=== PATIENT | male | born 1950 | race Caucasian/White ===

== ENCOUNTER 2020-10-05 10:53 | Outpatient (RCR) | payer MEDICARE, SELFPAY ==
--- NOTE | 2020-10-05 12:01 | PTOPEVAL ---
Thank you for referring Yousif Najera to [facility] The patient is scheduled to be seen for therapy? ____x/week for ___ weeks. Please review, sign, date and return this plan of care RAVINDER. I agree with and certify that the following plan of care is medically necessary. Referring Physician Date Admitting Provider: Attending Provider: ADAN BURRELL Referring Provider: JANETH Outpatient Evaluation Start: 10/05/20 10:58 Freq: Status: Active Protocol: Document 10/05/20 10:58 ACR (Rec: 10/05/20 12:00 ACR [id number]) Therapy Assessment Status Assessment Status Assessment Status Evaluation Evaluation Information Problem Diagnosis L1 spine fracture Onset 08/25/20 Subjective Information Patient states he fell against Query Text:As Reported By Patient/ the wall and slid straight Family down which fractured his L1 vertebrae. Patient states he has had about a dozen falls since the beginning of the year. He states he went to a specialist for his back and they gave him a back brace and told him to be careful. He is wearing the brace about 2-3 hours a day because he is suppose to be weaning off of the brace. Patient states that bending over, walking/ standing for a prolonged period of time, getting in and out of bed are all difficult. Patient states he has 3 steps to get into the house which he has no difficulty with. Patient states he was taking tramadol, but the prescription ran out. 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
== END 2020-11-09 13:29 | disposition home or self-care (01) ==
LOC: CHSPT 10:53
DX: M54.5 Low back pain (principal)
CPT/HCPCS: 97014; 97110; 97140; 97161; 97530; G0283